=== PATIENT | female | born 1980 | race American Indian/Alaskan Native ===

== ENCOUNTER 2022-10-26 18:36 | Emergency (ER) | payer MEDICAID | END 2022-10-26 18:58 | disposition left against medical advice (07) | LOC: MW.ED 18:36 | DX: Z53.21 Procedure and treatment not carried out due to patient leaving prior to being seen by health care provider (principal) ==

== ENCOUNTER 2022-10-26 22:37 | Emergency (ER) | payer MEDICAID ==
[2022-10-27 00:44] VITALS: BP 104/61; PULSE 81
[2022-10-27] MEDS ORDERED: Ketorolac 60 MG/2 ML SDV IM ONE (00:44)
== END 2022-10-27 01:43 | disposition home or self-care (01) ==
LOC: MW.ED 22:37
DX: M54.9 Dorsalgia, unspecified (principal); J45.909 Unspecified asthma, uncomplicated; K21.9 Gastro-esophageal reflux disease without esophagitis; F17.210 Nicotine dependence, cigarettes, uncomplicated; Z79.899 Other long term (current) drug therapy
CPT/HCPCS: 96372; 99283; J1885

== ENCOUNTER 2022-11-03 01:04 | Emergency (ER) | payer MEDICAID ==
[2022-11-03] MEDS ORDERED: Ibuprofen 600 MG Tab PO ONE (01:23)
[2022-11-03 01:47] VITALS: BP 125/89; PULSE 86
== END 2022-11-03 02:25 | disposition home or self-care (01) ==
LOC: MW.ED 01:04
DX: S69.91XA Unspecified injury of right wrist, hand and finger(s), initial encounter (principal); J45.909 Unspecified asthma, uncomplicated; K21.9 Gastro-esophageal reflux disease without esophagitis; Z79.899 Other long term (current) drug therapy; W22.09XA Striking against other stationary object, initial encounter
CPT/HCPCS: 73110; 73130; 99283; A9270; 99282

== ENCOUNTER 2022-11-07 22:57 | Emergency (ER) | payer MEDICAID ==
[2022-11-07] MEDS ORDERED: diphenhydrAMINE 25 MG Cap PO ONE (23:17)
[2022-11-07 23:57] VITALS: BP 115/74; PULSE 90
== END 2022-11-07 23:57 | disposition home or self-care (01) ==
LOC: MW.ED 22:57
DX: T63.481A Toxic effect of venom of other arthropod, accidental (unintentional), initial encounter (principal); J45.909 Unspecified asthma, uncomplicated
CPT/HCPCS: 99281; A9270

== ENCOUNTER 2022-11-15 20:15 | Emergency (ER) | payer MEDICAID ==
[2022-11-15] MEDS ORDERED: Ibuprofen 600 MG Tab PO ONE (20:52)
[2022-11-15 21:45] VITALS: BP 128/73; PULSE 78
== END 2022-11-15 21:45 | disposition home or self-care (01) ==
LOC: MW.ED 20:15
DX: S67.41XA Crushing injury of right wrist and hand, initial encounter (principal); K21.9 Gastro-esophageal reflux disease without esophagitis; J45.909 Unspecified asthma, uncomplicated; Z79.899 Other long term (current) drug therapy; W22.09XA Striking against other stationary object, initial encounter
CPT/HCPCS: 73110; 73130; 99283; A9270

== ENCOUNTER 2022-11-16 17:19 | Emergency (ER) | payer MEDICAID ==
[2022-11-16] MEDS ORDERED: Ibuprofen 600 MG Tab PO ONE (18:28)
[2022-11-16] MEDS ORDERED: Acetaminophen 500 MG Tab PO ONE (18:28)
[2022-11-16 19:14] VITALS: BP 142/78; PULSE 76
== END 2022-11-16 19:13 | disposition home or self-care (01) ==
LOC: MW.ED 17:19
DX: S40.021A Contusion of right upper arm, initial encounter (principal); K21.9 Gastro-esophageal reflux disease without esophagitis; J45.909 Unspecified asthma, uncomplicated; Z79.899 Other long term (current) drug therapy; W22.09XA Striking against other stationary object, initial encounter
CPT/HCPCS: 73090; 99283; A9270